=== PATIENT | female | born 1965 | race Caucasian/White ===

== ENCOUNTER 2023-09-14 14:19 | Outpatient (RCR) | payer OTHER, SELFPAY | END 2023-09-14 23:59 | disposition home or self-care (01) | LOC: RPT 14:19 | PROVIDERS: ATTENDING PHYSICIAN Orthopaedic Surgery Hand Surgery; FAMILY PHYSICIAN Internal Medicine | DX: M25.511 Pain in right shoulder (principal); Z73.6 Limitation of activities due to disability | CPT/HCPCS: 97010; 97110; 97112; 97140; 97162 ==

== ENCOUNTER → 2024-02-01 13:29 | Outpatient (REF) | payer OTHER, SELFPAY | LOC: WDC 13:29 | PROVIDERS: ATTENDING PHYSICIAN Obstetrics & Gynecology; FAMILY PHYSICIAN Internal Medicine | DX: Z12.31 Encounter for screening mammogram for malignant neoplasm of breast (principal) | CPT/HCPCS: 77063; 77067 ==

== ENCOUNTER → 2024-02-18 06:22 | Day surgery (SDC) | payer OTHER, SELFPAY | LOC: GI 06:22 | PROVIDERS: ATTENDING PHYSICIAN Internal Medicine; FAMILY PHYSICIAN Internal Medicine | DX: Z12.11 Encounter for screening for malignant neoplasm of colon (principal); K55.20 Angiodysplasia of colon without hemorrhage; K64.8 Other hemorrhoids; K57.30 Diverticulosis of large intestine without perforation or abscess without bleeding; D12.3 Benign neoplasm of transverse colon; K63.89 Other specified diseases of intestine; K63.5 Polyp of colon | CPT/HCPCS: 45385; 45380; 88305 ==

== ENCOUNTER → 2024-07-31 15:53 | Outpatient (REF) | payer OTHER, SELFPAY | LOC: RAD 15:53 | PROVIDERS: ATTENDING PHYSICIAN Internal Medicine | DX: R05.9 Cough, unspecified (principal) | CPT/HCPCS: 71046 ==

== ENCOUNTER → 2025-02-02 14:14 | Outpatient (REF) | payer OTHER, SELFPAY | LOC: WDC 14:14 | PROVIDERS: ATTENDING PHYSICIAN Obstetrics & Gynecology; FAMILY PHYSICIAN Internal Medicine | DX: Z12.31 Encounter for screening mammogram for malignant neoplasm of breast (principal) | CPT/HCPCS: 77063; 77067 ==

== ENCOUNTER 2025-03-14 07:36 | Emergency (ER) | payer OTHER, SELFPAY ==
[2025-03-14 07:37] VITALS: BP 147/84
--- NOTE | 2025-03-14 07:50 | ED.GENMED ---
History of Present Illness
General
Chief Complaint: Head Injury
Source: patient
Exam Limitations: none
Time Seen by Provider: 03/14/25 07:41
History of Present Illness
History of Present Illness:
59yoF with a history of hypertension, seizure, and remote history of non-Hodgkin's lymphoma presenting for evaluation after a head injury 3 days ago. Patient was walking inside from her garage 3 days ago when she lost her balance and fell backwards
down 2 steps. She struck her head against a concrete wall. There was no LOC. She stood up and fell backwards a second time and landed on her buttocks. She had one episode of vomiting shortly after the incident but has not vomited since. She is
presenting with head pressure, nausea, and dizziness with position changes. She also complains of neck discomfort and tailbone pain with standing. She does not take any blood thinners.
Past History
Past History
ED Past Medical History: HTN and Other (Seizure disorder, hypertension, renal artery stenosis, non-Hodgkin's lymphoma)
ED Past Surgical History:
Social History
Tobacco: Non-smoker
Alcohol: None
Drug: None
Personal:
Living: with family
Employment: Employed
Family History
Family History: Diabetes and CAD
Phy Exam
General Physical Exam
General Presentation: well appearing and no apparent distress
General Skin: warm and dry
General Habitus: normal
General Mental: alert
General Hydration: appears well hydrated
ENT Exam
ENT Exam: other (Occipital hematoma/ecchymosis noted with tenderness. There is also ecchymosis noted behind L ear. Cerumen impaction bilaterally. +Tenderness in cervical musculature bilaterally. )
Eye Exam
Eye Exam: PERRL and conjunctiva normal
Pulmonary Exam
Pulmonary Exam: lungs clear, no respiratory distress, no rales, no crackles, no rhonchi and no wheezing
Neurological Exam
Neurological Exam: alert and speech normal
Paul Coma Scale
Eye Opening: Spontaneous
Verbal Response: Oriented
Motor Response: Obeys Commands
GCS Total Score: 15
Skin Exam
Skin Exam: normal color and warm/dry
Psychiatric Exam
Psychiatric Exam: normal mood/affect
Course
Orders/Labs/Results
Orders:
Orders
03/14/25 07:48
CT Cervical Spine W/o Iv Contr Urgent
Comment:
Reason For Exam: head injury
CT Head W/o Iv Contrast Urgent
Comment:
Reason For Exam: head injury
Vital Signs
Initial and Last Documented VS:
Initial Vital Signs
Temp Pulse Resp BP Pulse Ox
99.1 F 74 16 147/84 98
03/14/25 07:37 03/14/25 07:37 03/14/25 07:37 03/14/25 07:37 03/14/25 07:37
Last Documented Vital Signs
Temp Pulse Resp BP Pulse Ox
99.1 F 74 16 147/84 98
03/14/25 07:37 03/14/25 07:37 03/14/25 07:37 03/14/25 07:37 03/14/25 07:50
MDM/Problems Addressed
Differential Diagnosis Includes:
59yoF here after a head injury 3 days ago. Struck head against concrete wall. No LOC. Vomiting immediately afterwards. C/o head pressure and dizziness with position changes. No blood thinners. She is awake, alert, with a GCS of 15. There is an
occipital hematoma noted on exam with ecchymosis behind L ear. Differential diagnosis includes but is not limited to: closed head injury, concussion, skull fracture, intracranial hemorrhage
Initial ED plan: Check CT head and cervical spine.
*Pulse Oximetry
SaO2: 98
Oxygen Mode of Delivery: Room air
Patient hypoxic: no
*Critical Care Note
Total Time (30-74mins, 75-104mins- exclusive of procedures): Not Applicable
Update Note
Update Note:
Imaging is negative for traumatic injuries. There is evidence of sinusitis noted on imaging. Patient does admit to having URI symptoms for the past 10 days which are not improving. She was given a prescription for doxycycline. Supportive care
discussed. Advised follow-up with PCP. She also has an appointment with her neurologist scheduled in 2 weeks. Patient discharged in stable condition.
ED Attending Note
-
Portions of this chart may have been created with voice recognition software.� Occasional wrong word or��sound alike� substitutions may have occurred due to the inherent limitations of voice recognition software.
Discharge Plan
Departure
Patient Disposition: Home (Routine Discharge)
Date of Disposition: 03/14/25
Time of Disposition: 09:40
Patient with high blood pressure during this ER visit?: Yes
Discharge Problem:
Closed head injury, Hematoma of occipital region of scalp, Sinusitis
Instructions: Head Injury in Adults (DC)
Prescriptions:
New
doxycycline hyclate 100 mg capsule
100 mg PO BID Qty: 14 0RF
No Action
trazodone 50 MG tablet
150 mg PO HS
melatonin 3 MG tablet
10 mg PO HS
fexofenadine [Supriya] 180 MG tablet
180 mg PO DAILY
lisinopril 10 MG tablet
10 mg PO DAILY
lamotrigine 100 MG tablet
100 mg PO DAILY@1400
lamotrigine 100 MG tablet
150 mg PO DAILY
lysine HCl 500 MG tablet
1,000 mg PO BID
multivitamin with folic acid [Tab-A-Kitty] 1 TABLET tablet
1 tab PO HS
Ativan:
1 tab PO PRN PRN (Reason: as directed)
Compazine:
1 tab PO PRN PRN (Reason: nausea)
Dapsone:
1 dose PO DAILY
Eliquis:
1 tab PO BID
Fluconazole
1 dose PO DAILY
Levaquin:
1 dose PO DAILY
Zofran:
1 tab PO TID
Referrals:
Messi Arriola MD [Family Provider, Internal Medicine]
Activity Restrictions/Additional Instructions:
Drink plenty of fluids and rest. Avoid strenuous activities although you may do mild aerobic activity such as walking. Take Tylenol as needed for pain.
Take doxycycline (antibiotic) as prescribed for your sinus infection.
Please follow-up with your family doctor next week. Return to the ER with any new or worsening symptoms.
Interventions
Interventions:
*Risk Screen - Suicide Last Done: 03/14/25 07:37
*Neglect/Abuse Screening Last Done: 03/14/25 07:37
*Nursing Disposition Last Done: 03/14/25 09:55
ED- Neurological Assessment Last Done: 03/14/25 07:53
ED-Skin Assessment Last Done: 03/14/25 07:53
Discharge Date and Time
Discharge Date/Time: 03/14/25 09:56
Print Language: BARBADIAN
== END 2025-03-14 09:56 | disposition home or self-care (01) ==
LOC: EMR 07:36
PROVIDERS: EMERGENCY PHYSICIAN Emergency Medicine; FAMILY PHYSICIAN Internal Medicine
DX: S09.90XA Unspecified injury of head, initial encounter (principal); S00.03XA Contusion of scalp, initial encounter; J32.9 Chronic sinusitis, unspecified; I10 Essential (primary) hypertension; G40.909 Epilepsy, unspecified, not intractable, without status epilepticus; I70.1 Atherosclerosis of renal artery; W10.9XXA Fall (on) (from) unspecified stairs and steps, initial encounter; W22.01XA Walked into wall, initial encounter; Y93.01 Activity, walking, marching and hiking; Y92.008 Other place in unspecified non-institutional (private) residence as the place of occurrence of the external cause; Z85.72 Personal history of non-Hodgkin lymphomas; Z82.49 Family history of ischemic heart disease and other diseases of the circulatory system
CPT/HCPCS: 99284; 70450; 72125